=== PATIENT | male | born 1945 | race Caucasian/White ===

== ENCOUNTER 2017-05-24 10:33 | Day surgery (SDC) | payer MEDICARE, OTHER ==
[2017-05-23 11:53] VITALS: BMI 24.3
[2017-05-24] MEDS ORDERED: Propofol 200 MG/20 ML VIAL ONE (12:59)
[2017-05-24] MEDS ORDERED: Lidocaine 1% PF 5 ML VIAL ONE (12:59)
--- NOTE | 2017-05-24 13:48 | OP ---
DATE OF PROCEDURE: 05/24/2017 PROCEDURE PERFORMED: Esophagogastroduodenoscopy and colonoscopy. PREOPERATIVE DIAGNOSIS: Gastroesophageal reflux disease and personal history of colon polyps and mu ltiple adenomas removed in 2013. PROCEDURE IN DETAIL: Informed consent was obtained from the patient. He was sedated with total int ravenous anesthesia. The bite block was placed and the endoscope was advanced easily to the second portion of the duodenum and retroflexion was performed in the stomach. The esophagus was normal. T he GE junction was normal. The stomach was normal including retroflexed views. The pylorus and fir st and second portions of the duodenum were normal. The air was suctioned from the stomach. The pa tient was turned around. Rectal exam was performed and was normal. The colonoscope was advanced to the cecum where the ileoc ecal valve and appendiceal orifice were clearly identified. The preparation quality was excellent. There was moderately severe diverticulosis in the descending and sigmoid colon. The remainder of t he colonic mucosa was normal. Retroflexed views in the rectum were normal. IMPRESSION: 1. Normal esophagogastroduodenoscopy. 2. Moderately severe left-sided diverticulosis. 3. Otherwise normal colonoscopy. RECOMMENDATIONS: 1. Continue Zantac as needed. 2. Repeat colonoscopy in 5 years for polyp surveillance. 3. Follow up in GI clinic as needed.
== END 2017-05-24 14:29 | disposition home or self-care (01) ==
LOC: SDC 10:33
PROVIDERS: ATTEND Internal Medicine Gastroenterology
PROC: 0DJD8ZZ Inspection of Lower Intestinal Tract, Via Natural or Artificial Opening Endoscopic (ICD-10-PCS; principal; 2017-05-24)
PROC: 0DJ08ZZ Inspection of Upper Intestinal Tract, Via Natural or Artificial Opening Endoscopic (ICD-10-PCS; 2017-05-24)
DX: Z12.11 Encounter for screening for malignant neoplasm of colon (principal); K21.9 Gastro-esophageal reflux disease without esophagitis; K57.30 Diverticulosis of large intestine without perforation or abscess without bleeding; E78.00 Pure hypercholesterolemia, unspecified; Z88.2 Allergy status to sulfonamides; Z88.1 Allergy status to other antibiotic agents; Z79.82 Long term (current) use of aspirin; Z79.899 Other long term (current) drug therapy; Z90.49 Acquired absence of other specified parts of digestive tract; Z98.49 Cataract extraction status, unspecified eye; Z98.890 Other specified postprocedural states; Z86.010 Personal history of colon polyps; Z83.79 Family history of other diseases of the digestive system
CPT/HCPCS: 43235; G0105; J2001; J2704

== ENCOUNTER 2017-09-11 21:44 | Emergency (ER) | payer MEDICARE, OTHER ==
[2017-09-11 22:08] LABS: #Eosinphils 0.3 thou/uL (0.0-0.7); #Monocytes 0.6 thou/uL (0.11-0.59); #Neutrophils 3.4 thou/uL (1.40-6.50); %Basophils 0.4 % (0.0-1.0); %Eosinophils 5.9 % (0.0-10.0); %Monocytes 10.7 % (0.0-10.0); %Neutrophils 64.1 % (42.0-75.0); Hemoglobin 15.5 g/dL (14.0-18.0); Mean Corpuscular Hemoglobin 30.7 pg (27.0-31.0); Mean Corpuscular Volume 92.9 fl (80.0-94.0); Mean Platelet Volume 7.4 fL (7.4-10.4); Platelet Count 222 thou/uL (130-400); RBC Distribution Width 11.9 % (11.5-14.5); Red Blood Cell (RBC) Count 5.04 mill/uL (4.70-6.10); White Blood Cell (WBC) Count 5.3 thou/uL (4.8-10.8)
--- NOTE | 2017-09-11 22:25 | RAD ---
PORTABLE CHEST: History: Chest pain FINDINGS: Lungs are clear. Heart and mediastinum appear normal. Vascular markings are normal. IMPRESSION: Unremarkable portable chest. POS: [facility]
[2017-09-11 22:28] LABS: ALT (SGPT) 21 U/L (8-55); AST (SGOT) 22 U/L (5-34); Albumin 4.5 g/dL (3.4-4.8); Alkaline Phosphatase 69 U/L (40-150); Anion Gap 13 mmol/L (10-20); BUN (Urea Nitrogen) 16 mg/dL (8.4-25.7); Bilirubin, Total 0.6 mg/dL (0.2-1.2); Calc. Creatinine Clearance 0 mL/min (70-130); Calcium 9.5 mg/dL (7.8-10.44); Carbon Dioxide 30 mmol/L (23-31); Chloride 95 mmol/L (98-107); Estimated GFR-MDRD 69; Globulin 2.6 g/dL (2.4-3.5); Glucose 112 mg/dL (83-110); Lipase 41 U/L (8-78); Potassium 3.6 mmol/L (3.5-5.1); Protein, Total 7.1 g/dL (5.8-8.1); Sodium 134 mmol/L (136-145)
[2017-09-11 22:29] LABS: Bilirubin Negative (Negative); Blood, Urine Trace (Negative); Clarity CLEAR (Clear); Glucose, Urine (Dipstick) Negative (Negative); Leukocyte Negative (Negative); Nitrite Negative (Negative); Protein, Urine (Dipstick) Negative (Neg-Trace); Specific Gravity, Urine 1.006 (1.002-1.036); Urobilinogen 0.2 mg/dL (0.2-1.0)
[2017-09-11 22:31] LABS: Bacteria/HPF None Seen HPF (None Seen); Hyaline Casts/LPF 0-3 HYALINE CAST LPF (0-3 Hyaline); RBC/HPF 0-3 HPF (0-3); Squamous Epithelial None Seen HPF (0-3); WBC/HPF 0-3 HPF (0-3)
[2017-09-11 22:36] LABS: CKMB 5.4 ng/mL (0-6.6); Troponin I 0.011 ng/mL (< 0.028)
--- NOTE | 2017-09-11 23:02 | RAD ---
LEFT SHOULDER THREE VIEWS: History: Fall with injury to left shoulder. FINDINGS: Humeral head is normally positioned. AC joint is normally aligned. No fracture or dislocation is seen . IMPRESSION: No acute abnormality. POS: [facility]
[2017-09-11] MEDS ORDERED: HYDROcodone/Acetaminophen 5/325 mg Tablet ONE (23:10)
--- NOTE | 2017-09-17 22:42 | EKG ---
Test Reason : Blood Pressure : / mmHG Vent. Rate : 067 BPM Atrial Rate : 067 BPM P-R Int : 156 ms QRS Dur : 088 ms QT Int : 384 ms P-R-T Axes : 045 032 072 degrees QTc Int : 405 ms Normal sinus rhythm Normal ECG Confirmed by MADAI ROSA ([id number]), subeditor CHRIS MULLINS ([id number] on 09/17/2017 10:41:12 PM Referred By: DAVID ROSA Confirmed By:MADAI ROSA
== END 2017-09-11 23:00 | disposition home or self-care (01) ==
LOC: ERS 21:44
DX: M25.512 Pain in left shoulder (principal); G70.00 Myasthenia gravis without (acute) exacerbation; K21.9 Gastro-esophageal reflux disease without esophagitis; E78.5 Hyperlipidemia, unspecified; I10 Essential (primary) hypertension; F41.9 Anxiety disorder, unspecified; N40.0 Benign prostatic hyperplasia without lower urinary tract symptoms; Z79.82 Long term (current) use of aspirin; Z79.899 Other long term (current) drug therapy
CPT/HCPCS: 71045; 80053; 81003; 81015; 82553; 83690; 84484; 85025; 85379; 93005

== ENCOUNTER 2018-09-06 13:32 | Outpatient (CLI) | payer MEDICARE, OTHER ==
[~2018-09-06 13:32] MED LIST: ISOVUE-370 76%-LOCM 1 ML ONE
--- NOTE | 2018-09-06 15:50 | CT ---
CT ABDOMEN AND PELVIS WITH AND WITHOUT IV CONTRAST: History: Pelvic pain. FINDINGS: No comparison. Mild atelectasis and parenchymal scarring are present at each lung base. Gallbladder i s surgically absent. Each renal collecting system, ureter, and urinary bladder are decompressed witho ut stone apparent. Mild prostatic hypertrophy to the bladder base. A 4.7 cm diverticulum projects lef tward from the prior aspect of the urinary bladder and a 2.4 cm diverticulum is present on the right posteriorly. No filling defects are reliably demonstrated. Diverticula arise from the colon without adjacent inflammation. There is calcification throughout the arterial structures. Degenerative changes lumbar spine. IMPRESSION: 1. Bilateral urinary bladder diverticula suggestive of chronic bladder outlet obstruction. 2. Atherosclerosis. 3. Diverticulosis. No evidence of diverticulitis. POS: [facility]
== END 2018-09-06 13:33 | disposition home or self-care (01) ==
LOC: BICCT 13:32
PROVIDERS: ATTEND Urology
DX: R10.2 Pelvic and perineal pain (principal); N32.3 Diverticulum of bladder; I70.0 Atherosclerosis of aorta; K57.30 Diverticulosis of large intestine without perforation or abscess without bleeding
CPT/HCPCS: 74178

== ENCOUNTER 2018-10-11 00:34 | Outpatient (CLI) | payer MEDICARE, OTHER ==
[2018-10-11 14:55] LABS: Hemoglobin 14.4 g/dL (14.0-18.0); Mean Corpuscular HGB CONC 33.3 g/dL (32.0-36.0); Mean Corpuscular Hemoglobin 31.1 pg (27.0-31.0); Mean Corpuscular Volume 93.5 fL (78.0-98.0); Mean Platelet Volume 8.2 fL (7.4-10.4); Platelet Count 237 thou/uL (130-400); RBC Distribution Width 12.4 % (11.5-14.5); Red Blood Cell (RBC) Count 4.62 mill/uL (4.70-6.10); White Blood Cell (WBC) Count 6.8 thou/uL (4.8-10.8)
[2018-10-11 14:57] LABS: Bilirubin Negative (Negative); Blood, Urine Negative (Negative); Clarity CLEAR (Clear); Glucose, Urine (Dipstick) Negative (Negative); Leukocyte Negative (Negative); Nitrite Negative (Negative); Protein, Urine (Dipstick) Negative (Neg-Trace); Specific Gravity, Urine 1.007 (1.002-1.036); Urobilinogen 0.2 mg/dL (0.2-1.0); pH, Urine 6.5 (5.0-9.0)
[2018-10-11 14:59] LABS: Prothrombin Time 13.4 SEC (12.0-14.7)
[2018-10-11 15:00] LABS: PTT 30.3 SEC (22.9-36.1)
[2018-10-11 15:04] LABS: Bacteria/HPF None Seen HPF (None Seen); Hyaline Casts/LPF 0-3 HYALINE CAST LPF (0-3 Hyaline); Pathc Cast-AUWi Flag 0.14 (0-2.49); RBC/HPF 0-3 HPF (0-3); Squamous Epithelial None Seen HPF (0-3); WBC/HPF None Seen HPF (0-3)
[2018-10-11 15:15] LABS: Anion Gap 13 mmol/L (10-20); BUN (Urea Nitrogen) 19 mg/dL (8.4-25.7); Calc. Creatinine Clearance 0 mL/min (70-130); Calcium 9.9 mg/dL (7.8-10.44); Carbon Dioxide 27 mmol/L (23-31); Chloride 103 mmol/L (98-107); Estimated GFR-MDRD 72; Glucose 95 mg/dL (83-110); Potassium 4.1 mmol/L (3.5-5.1); Sodium 139 mmol/L (136-145)
== END 2018-10-11 00:35 | disposition home or self-care (01) ==
LOC: LABBT 00:34
PROVIDERS: ATTEND Urology
DX: Z01.812 Encounter for preprocedural laboratory examination (principal); N32.9 Bladder disorder, unspecified
CPT/HCPCS: 80048; 81001; 85027; 85610; 85730; 87086

== ENCOUNTER 2018-10-16 05:58 | Day surgery (SDC) | payer MEDICARE, OTHER ==
[2018-10-11 14:42] VITALS: BMI 24.3
[2018-10-16] MEDS ORDERED: Famotidine/PF 20 mg/2ml Vial ONE (07:04)
[2018-10-16] MEDS ORDERED: Fentanyl 100 MCG/2 ML VIAL ONE (07:04)
[2018-10-16] MEDS ORDERED: SUGAMMADEX SODIUM 500 MG/5 ML VIAL ONE (08:03)
[2018-10-16] MEDS ORDERED: SUGAMMADEX SODIUM 200 MG/2 ML VIAL ONE (08:03)
--- NOTE | 2018-10-16 09:38 | OP ---
DATE OF PROCEDURE: 10/16/2018 PREOPERATIVE DIAGNOSIS: Bladder diverticulum with bladder lesions. POSTOPERATIVE DIAGNOSIS: Bladder diverticulum with bladder lesions. PROCEDURES PERFORMED: Cysto, biopsy, and fulguration. ANESTHESIA: General. ESTIMATED BLOOD LOSS: Minimal. DRAINS PLACED: An 18-Macanese Santo catheter, 20 mL in the balloon. FINDINGS: He has no evidence of stricture disease. He has a prostatic urethra, status post TURP with a mild amount of regrowth on the left side toward the apex. He has 2+ trabeculation. He has 3 diverticula, two smaller ones on the right and a slightly larger one on the left. The ones in the right are crystal clear on the anterior and the one on the left has some inflammatory areas and some papillary/bullous type polyps with a little bit of thickening of the mucosa just at its neck on its medial side. We did some biopsies of these areas with cold cup and then fulgurated these with Bugbee. OPERATIVE TECHNIQUE: Obtained written and verbal consent from the patient. After receiving antibiotics, he was taken to the operating suite. He was placed in a supine position on the treatment table. PlexiPulses were placed in his lower extremities and turned on. He was given a general anesthetic and oral intubation. He was placed in the dorsal lithotomy position. He was sterilely prepped and draped. Cystoscopy was performed with a 22-Macanese sheath. This was well lubricated, passed under direct vision through the male urethra into the urinary bladder with the aid a 30-degree lens video camera and monitor. The bladder was filled and emptied number of times, this was examined with both the 30 and 70-degree lens. The diverticulum was easily accessed with a 22-Macanese sheath and a 30-degree lens. We used a cold cup biopsy to biopsy some of these bullous and papular areas and then took also some biopsies of the thicker areas at the neck. We then used Bugbee to cauterize all biopsy sites as well as cauterized the papillary and bullous lesions themselves. There was no significant bleeding noted. The bladder was drained. The instruments were removed. Santo catheter was placed. It was draining a clear urine. It was hooked up to a drainage bag. He was taken out of the dorsal lithotomy position, awakened from his anesthetic, extubated, and taken by stretcher to recovery room. Job ID: [id number]
== END 2018-10-16 10:40 | disposition home or self-care (01) ==
LOC: SDC 05:58
PROVIDERS: ATTEND Urology
PROC: 0TBB8ZX Excision of Bladder, Via Natural or Artificial Opening Endoscopic, Diagnostic (ICD-10-PCS; principal; 2018-10-16)
DX: D30.3 Benign neoplasm of bladder (principal); N32.3 Diverticulum of bladder; D41.4 Neoplasm of uncertain behavior of bladder; I10 Essential (primary) hypertension; E78.5 Hyperlipidemia, unspecified; M10.9 Gout, unspecified; Z79.82 Long term (current) use of aspirin; Z79.899 Other long term (current) drug therapy; Z88.1 Allergy status to other antibiotic agents; Z88.2 Allergy status to sulfonamides; Z88.8 Allergy status to other drugs, medicaments and biological substances
CPT/HCPCS: 88305; J0131; J3010; S0028

== ENCOUNTER 2019-02-08 10:07 | Outpatient (CLI) | payer MEDICARE, OTHER ==
--- NOTE | 2019-02-08 14:38 | [facility] ---
LUMBAR SPINE 3 VIEWS: HISTORY: Back pain. COMPARISON: CT of 09/06/2018. FINDINGS: Five [id number] lumbar-type vertebrae. No acute fracture or malalignment. Advanced degenerativ e disk space height loss of L5-S1. There is narrowing of the interspinous space from L1-L5 with navi ical screw and subcortical cyst formation. Moderate facet arthropathy bilaterally at L5-S1. IMPRESSION: Moderate spondylosis without fracture. POS: [facility]
== END 2019-02-08 10:08 | disposition home or self-care (01) ==
LOC: MWLC RAD 10:07
PROVIDERS: ATTEND Internal Medicine Geriatric Medicine
DX: M54.5 Low back pain (principal); M47.816 Spondylosis without myelopathy or radiculopathy, lumbar region

== ENCOUNTER 2019-10-18 14:12 | Outpatient (CLI) | payer MEDICARE, OTHER ==
--- NOTE | 2019-10-18 15:11 | BD ---
Exam: DEXA Bone Density 10/18/19 HISTORY: 74-year-old male with osteopenia. FINDINGS: Lumbar Spine: BMD (g/cm2) T-SCORE L1 0.949 -1.1 L2 0.973 -1.1 L3 1.089 -0.1 L4 1.109 0.2 L1-L4 1.038 -0.5 Left Femoral Neck: 0.574 -2.6 Total Proximal Left Femur: 0.721 -2.1 Impression: Osteoporosis. POS: [facility]
== END 2019-10-18 14:13 | disposition home or self-care (01) ==
LOC: BICMAMMO 14:12
PROVIDERS: ATTEND Internal Medicine
DX: Z13.820 Encounter for screening for osteoporosis (principal); M81.0 Age-related osteoporosis without current pathological fracture; Z79.52 Long term (current) use of systemic steroids
CPT/HCPCS: 77080

== ENCOUNTER 2021-06-16 19:30 | Outpatient (CLI) | payer MEDICARE, OTHER | END 2021-06-16 19:31 | disposition home or self-care (01) | LOC: SLEEPLAB 19:30 | PROVIDERS: ATTEND Internal Medicine | DX: G47.33 Obstructive sleep apnea (adult) (pediatric) (principal); R53.83 Other fatigue; R06.83 Snoring; G47.00 Insomnia, unspecified; G47.10 Hypersomnia, unspecified; K21.9 Gastro-esophageal reflux disease without esophagitis | CPT/HCPCS: 95810 ==

== ENCOUNTER 2021-07-08 19:30 | Outpatient (CLI) | payer MEDICARE, OTHER | END 2021-07-08 19:31 | disposition home or self-care (01) | LOC: SLEEPLAB 19:30 | PROVIDERS: ATTEND Internal Medicine | DX: G47.33 Obstructive sleep apnea (adult) (pediatric) (principal); R53.83 Other fatigue; R06.83 Snoring; G47.10 Hypersomnia, unspecified; E66.9 Obesity, unspecified; Z68.26 Body mass index [BMI] 26.0-26.9, adult; G47.31 Primary central sleep apnea | CPT/HCPCS: 95811 ==

== ENCOUNTER 2021-08-11 19:30 | Outpatient (CLI) | payer MEDICARE, OTHER | END 2021-08-11 19:31 | disposition home or self-care (01) | LOC: SLEEPLAB 19:30 | PROVIDERS: ATTEND Internal Medicine | DX: G47.33 Obstructive sleep apnea (adult) (pediatric) (principal); R53.83 Other fatigue; G47.31 Primary central sleep apnea | CPT/HCPCS: 95811 ==

== ENCOUNTER 2022-04-02 19:00 | Outpatient (CLI) | payer MEDICARE, OTHER | END 2022-04-02 19:01 | disposition home or self-care (01) | LOC: SLEEPLAB 19:00 | PROVIDERS: ATTEND Internal Medicine Critical Care Medicine | DX: G47.33 Obstructive sleep apnea (adult) (pediatric) (principal); G47.31 Primary central sleep apnea; R53.83 Other fatigue; R06.83 Snoring; G47.10 Hypersomnia, unspecified; E66.9 Obesity, unspecified; Z68.26 Body mass index [BMI] 26.0-26.9, adult | CPT/HCPCS: 95811 ==

== ENCOUNTER 2022-07-05 09:46 | Outpatient (CLI) | payer MEDICARE, OTHER | END 2022-07-05 09:47 | disposition home or self-care (01) | LOC: BICMAMMO 09:46 | PROVIDERS: ATTEND Internal Medicine | DX: M81.0 Age-related osteoporosis without current pathological fracture (principal); M85.851 Other specified disorders of bone density and structure, right thigh; M85.852 Other specified disorders of bone density and structure, left thigh | CPT/HCPCS: 77080 ==

== ENCOUNTER 2022-09-01 17:19 | Emergency (ER) | payer MEDICARE, OTHER ==
[2022-09-01] MEDS ORDERED: Acetaminophen 500 MG TAB ONE (18:26)
== END 2022-09-01 18:36 | disposition home or self-care (01) ==
LOC: ERS 17:19
DX: U07.1 COVID-19 (principal)
CPT/HCPCS: 71045

== ENCOUNTER 2022-09-10 08:57 | Outpatient (CLI) | payer MEDICARE, OTHER ==
[2022-09-10] MEDS ORDERED: Iopamidol-370 76% 500 ML 1 ML ONE (09:50)
== END 2022-09-10 08:58 | disposition home or self-care (01) ==
LOC: BICCT 08:57
PROVIDERS: ATTEND Internal Medicine
DX: R91.1 Solitary pulmonary nodule (principal)
CPT/HCPCS: 71260; 82565; Q9967

== ENCOUNTER 2022-09-22 07:14 | Outpatient (CLI) | payer MEDICARE, OTHER ==
[2022-09-22] MEDS ORDERED: Iopamidol 370 76% 100 ML VIAL ONE (09:10)
== END 2022-09-22 07:15 | disposition home or self-care (01) ==
LOC: CT 07:14
PROVIDERS: ATTEND Internal Medicine
DX: R94.8 Abnormal results of function studies of other organs and systems (principal); K57.90 Diverticulosis of intestine, part unspecified, without perforation or abscess without bleeding; N32.3 Diverticulum of bladder; R91.1 Solitary pulmonary nodule
CPT/HCPCS: 74170; 82565; Q9967

== ENCOUNTER 2022-12-16 07:28 | Outpatient (CLI) | payer MEDICARE, OTHER | END 2022-12-16 07:29 | disposition home or self-care (01) | LOC: CT 07:28 | PROVIDERS: ATTEND Internal Medicine | DX: K86.89 Other specified diseases of pancreas (principal); R91.1 Solitary pulmonary nodule; K57.30 Diverticulosis of large intestine without perforation or abscess without bleeding; K59.00 Constipation, unspecified; Z90.49 Acquired absence of other specified parts of digestive tract | CPT/HCPCS: 74170; 82565 ==

== ENCOUNTER 2023-08-16 08:56 | Outpatient (CLI) | payer MEDICARE, OTHER ==
[2023-08-16] MEDS ORDERED: Magnevist 469MG/ML 20 ML VIAL ONE (09:59)
== END 2023-08-16 08:57 | disposition home or self-care (01) ==
LOC: MRI 08:56
PROVIDERS: ATTEND Internal Medicine Gastroenterology
DX: K86.89 Other specified diseases of pancreas (principal); K83.8 Other specified diseases of biliary tract
CPT/HCPCS: 74183

== ENCOUNTER 2023-09-09 07:25 | Outpatient (CLI) | payer MEDICARE, OTHER ==
[2023-09-09] MEDS ORDERED: Iopamidol 370 76% 100 ML VIAL ONE (12:19)
== END 2023-09-09 07:26 | disposition home or self-care (01) ==
LOC: BICCT 07:25
PROVIDERS: ATTEND Internal Medicine Critical Care Medicine
DX: R91.1 Solitary pulmonary nodule (principal)
CPT/HCPCS: 71260; 82565; Q9967

== ENCOUNTER 2023-10-20 07:59 | Outpatient (CLI) | payer MEDICARE, OTHER | END 2023-10-20 08:00 | disposition home or self-care (01) | LOC: CT 07:59 | PROVIDERS: ATTEND Internal Medicine Gastroenterology | DX: K86.89 Other specified diseases of pancreas (principal); R91.1 Solitary pulmonary nodule; K76.89 Other specified diseases of liver; N32.3 Diverticulum of bladder; K57.30 Diverticulosis of large intestine without perforation or abscess without bleeding; N32.89 Other specified disorders of bladder; Z90.49 Acquired absence of other specified parts of digestive tract | CPT/HCPCS: 74177; 82565 ==